=== PATIENT | female | born 1930 | race Two or more races ===

== ENCOUNTER → 2020-04-27 | Outpatient (CLI) | payer OTHER ==
[~2020-04-27] MED LIST: LISI-334 PO; METO50TA6 PO
--- NOTE | 2020-04-27 11:41 | RAD ---
3 views the cervical spine without comparison for cervicalgia. FINDINGS: There is dense atherosclerosis of the aortic arch. There is reversal of the normal cervical lordosis at C3-4. There is collapse and dense sclerosis of C5, with dense sclerosis seen at C6 as well, and there is obliteration of the C4-5 intervertebral disc space and near complete obliteration of the C5-6 intervertebral disc space, possibly with fusion of these vertebral bodies posteriorly. Bulky anterior and posterior osteophytes are seen from C3-4 through C6-7. Some degree of central canal stenosis is likely. Prevertebral soft tissues are grossly unremarkable. Atlantoaxial articulation is not well demonstrated. IMPRESSION: 1. Sclerosis and collapse of C5, with dense sclerosis of the adjacent C6 vertebral body and possible C4-5-6 degenerative fusion. Sclerosis and collapse of most likely degenerative, however a pathologic blastic metastatic process cannot be excluded and further evaluation with MRI of the cervical spine should be considered. 2. 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 Electronically signed by: Nilesh Rajput MD (04/27/2020 11:38 AM) [id number]
== END ==
LOC: DXRAD 11:05
PROVIDERS: ATTEND Specialist
DX: M48.02 Spinal stenosis, cervical region (principal); G95.89 Other specified diseases of spinal cord; I70.0 Atherosclerosis of aorta
CPT/HCPCS: 72040

== ENCOUNTER 2020-09-10 14:59 | Observation (INO) | payer OTHER ==
[~2020-09-10] VITALS: Ht 139.7 cm; Wt 35.7 kg
[~2020-09-10 14:59] MED LIST changes: -LISI-334 PO; +LISI20TA18 PO
[2020-09-10] MEDS ORDERED: IOHEXOL 300 MG/ML 75 ML VIAL. IV ONE (15:45)
--- NOTE | 2020-09-10 16:13 | RAD ---
Chest AP portable at 1540: Reason for examination: Upper abdominal pain. Comparison is made to previous study dated 09/26/2010. The heart size is upper normal. Mediastinum is unremarkable. Lung powell show some mild elevation of the right hemidiaphragm and some linear atelectasis at both lung bases. No pneumothorax is seen. No a cute bony abnormality seen. There is severe narrowing of the acromiohumeral joint space on the left c onsistent with chronic rotator cuff injury. IMPRESSION: Mild elevation of the right hemidiaphragm. Linear atelectasis at both lung bases. Electronically signed by: Caty Galo MD (09/10/2020 4:10 PM) [place]
--- NOTE | 2020-09-10 16:14 | EKG ---
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
[2020-09-10 16:40] LABS: BASO % 1 % (0-3); EOS % 0 % (0-3); HEMATOCRIT 38.4 % (36.0-47.0); HEMOGLOBIN 12.8 g/dL (12.0-15.5); LYMPH # 0.4 x10^3/uL (1.0-4.8); LYMPH % 5 % (24-48); MEAN CORPUSCULAR HEMOGLOBIN 30 pg (25-35); MEAN CORPUSCULAR HGB CONC 33 g/dL (31-37); MEAN CORPUSCULAR VOLUME 91 fL (79-100); MONO # 0.4 x10^3/uL (0.0-1.1); MONO % 4 % (0-9); NEUT # 7.8 x10^3uL (1.8-7.7); NEUT % 90 % (31-73); PLATELET COUNT 195 x10^3/uL (140-400); RED BLOOD COUNT 4.21 x10^6/uL (3.50-5.40); RED CELL DISTRIBUTION WIDTH 14.2 % (11.5-14.5); WHITE BLOOD COUNT 8.7 x10^3/uL (4.0-11.0)
--- NOTE | 2020-09-10 16:47 | PHYS DOC ---
Past History Past Medical History: Hypertension (JACKY DE LOS SANTOS DO) Past Surgical History: Other Additional Past Surgical Histo: Bladder, shoulder right (JACKY DE LOS SANTOS DO) Alcohol Use: None (JACKY DE LOS SANTOS DO) General Adult EDM: Chief Complaint: ABDOMINAL PAIN HPI: HPI: 89-year-old female past medical history of hypertension and psych (on duloxetine) presents to the ED with complaints of lower abdominal pain is now moved to the upper that started last night. Last bowel movement was yesterday. Now reports nausea. PSH-bladder surgery. Patient here in the ED with []. Patient is Turkish-speaking. (JCAKY DE LOS SANTOS DO) Review of Systems: Review of Systems: Constitutional: Denies fever or chills Eyes: Denies change in visual acuity HENT: Denies nasal congestion or sore throat Respiratory: Denies cough or shortness of breath Cardiovascular: Denies chest pain or edema GI: Denies abdominal pain, nausea, vomiting, bloody stools or diarrhea : Denies dysuria Musculoskeletal: Denies back pain or joint pain Integument: Denies rash Neurologic: Denies headache, focal weakness or sensory changes Endocrine: Denies polyuria or polydipsia Lymphatic: Denies swollen glands Psychiatric: Denies depression or anxiety (JACKY DE LOS SANTOS DO) Current Medications: Current Meds: Current Medications Medications (Trade) Dose Ordered Sig/Robyn Start Time Stop Time Status Last Admin Dose Admin Iohexol (Omnipaque 300 Mg/ml) 75 ml 1X ONCE 09/10/20 15:45 09/10/20 15:46 DC (JACKY DE LOS SANTOS DO) Allergies: Allergies: Allergies Coded Allergies Type Severity Reaction Last Updated Verified No Known Drug Allergies 05/04/14 No (JACKY DE LOS SANTOS DO) Physical Exam: PE: Constitutional: Well developed, well nourished, no acute distress, non-toxic appearance. HENT: Normocephalic, atraumatic, Eyes: EOMI, conjunctiva normal, no discharge. Neck: Normal range of motion, supple, Cardiovascular: S1/2 present, regular rhythm Lungs & Thorax: Speaking in full sentences, bilateral equal chest rise, no tachypnea or increased work of breathing Abdomen: soft, no tenderness, Skin: Warm, dry, no erythema, no rash. [] Back: No tenderness, no CVA tenderness. [] Extremities: No tenderness, no cyanosis, no lower extremity edema Neurologic: Alert and oriented X 3, normal motor function, normal sensory function, no focal deficits noted. [] Psychologic: Affect normal, judgement normal, mood normal. [] ([facility]) Current Patient Data: Labs: Laboratory Tests Test 09/10/20 16:04 White Blood Count 8.7 x10^3/uL (4.0-11.0) Red Blood Count 4.21 x10^6/uL (3.50-5.40) Hemoglobin 12.8 g/dL (12.0-15.5) Hematocrit 38.4 % (36.0-47.0) Mean Corpuscular Volume 91 fL (79-100) Mean Corpuscular Hemoglobin 30 pg (25-35) Mean Corpuscular Hemoglobin Concent 33 g/dL (31-37) Red Cell Distribution Width 14.2 % (11.5-14.5) Platelet Count 195 x10^3/uL (140-400) Neutrophils (%) (Auto) 90 % (31-73) H Lymphocytes (%) (Auto) 5 % (24-48) L Monocytes (%) (Auto) 4 % (0-9) Eosinophils (%) (Auto) 0 % (0-3) Basophils (%) (Auto) 1 % (0-3) Neutrophils # (Auto) 7.8 x10^3uL (1.8-7.7) H Lymphocytes # (Auto) 0.4 x10^3/uL (1.0-4.8) L Monocytes # (Auto) 0.4 x10^3/uL (0.0-1.1) Eosinophils # (Auto) 0.0 x10^3/uL (0.0-0.7) Basophils # (Auto) 0.0 x10^3/uL (0.0-0.2) Platelet Estimate Pending Vital Signs: Vital Signs Date Time Temp Pulse Resp B/P (MAP) Pulse Ox O2 Delivery O2 Flow Rate FiO2 09/10/20 15:14 97.8 68 16 129/53 (78) 98 Room Air ([facility]) EKG: EKG: Sinus rhythm at 66 bpm, left axis deviation, QRS 120, QTc 484, left bundle branch block present, T wave inversion 1 and aVL, no ST elevations or ST depressions consistent with modified's scarbossa criteria (JACKY DE LOS SANTOS DO) Radiology/Procedures: Radiology/Procedures: IMAGING REPORT Signed PATIENT: WILFREDO LING ACCOUNT: [id number] : 1930 LOCATION: ER AGE: 89 SEX: F EXAM STATUS: REG ER ORD. PHYSICIAN: JACKY DE LOS SANTOS DO REASON: upper abd pain PROCEDURE: PORTABLE CHEST 1V Chest AP portable at 1540: Reason for examination: Upper abdominal pain. Comparison is made to previous study dated 09/26/2010. The heart size is upper normal. Mediastinum is unremarkable. Lung powell show some mild elevation of the right hemidiaphragm and some linear atelectasis at both lung bases. No pneumothorax is seen. No acute bony abnormality seen. There is severe narrowing of the acromiohumeral joint space on the left consistent with chronic rotator cuff injury. IMPRESSION: Mild elevation of the right hemidiaphragm. Linear atelectasis at both lung bases. Electronically signed by: Derrick Quiroga MD (09/10/2020 4:10 PM) [facility] DICTATED AND SIGNED BY: DERRICK QUIROGA MD DATE: 09/10/20 1608 CC: USMAN SANTAMARIA MD; JACKY DE LOS SANTOS DO ~MTH0 0 (JACKY DE LOS SANTOS DO) Radiology/Procedures: CT abdomen pelvis without contrast dated 09/10/2020. Comparison made to 05/04/2014. CLINICAL INDICATION: Upper abdominal pain. TECHNIQUE: Contiguous axial imaging the abdomen pelvis performed the administration of oral contrast only. One or more of the following individualized dose reduction techniques were utilized for this examination: 1. Automated exposure control 2. Adjustment of the mA and/or kV according to patient size 3. Use of iterative reconstruction technique FINDINGS: Limited images of the lung bases show linear bands of increased density in the lower lobes, likely scar or atelectasis. Heart size is mildly enlarged. No pleural or pericardial effusion. Solid abdominal viscera not well evaluated in the absence of contrast material. No apparent attenuation abnormality of the liver or spleen. Pancreas is atrophic. Adrenal glands and kidneys are unremarkable. No stone or hydronephro sis. Partially opacified GI tract normal in caliber and contour. No focal bowel wall thickening. The small bowel is mildly dilated, however no transition point is identified. There is a moderate amount stool at the rectal vault with fluid- filled colon. No inflammatory changes in the mesentery. The appendix is not clearly identified. No lymphadenopathy. Images of pelvis show collapsed urinary bladder with Cloud catheter in place. There is a trace amount of free pelvic fluid. No pelvic lymphadenopathy. Bone windows show no acute findings. Multilevel spondylosis. Scoliotic curvature of the thoracolumbar spine. IMPRESSION: 1. Mildly prominent loops of small bowel with no evidence of focal transition point. This could be related to ileus or enteritis. There is a moderate amount of stool at the rectal vault. 2. Small amount of free pelvic fluid, nonspecific. 3. Patchy bibasilar opacity, likely atelectasis. (IVETTE SAUCEDO MD) Heart Score: Risk Factors: Risk Factors: DM, Current or recent (<one month) smoker, HTN, HLP, family history of CAD, obesity. Risk Scores: Score 0 - 3: 2.5% MACE over next 6 weeks - Discharge Home Score 4 - 6: 20.3% MACE over next 6 weeks - Admit for Clinical Observation Score 7 - 10: 72.7% MACE over next 6 weeks - Early Invasive Strategies (JACKY DE LOS SANTOS DO) C/O Chest Pain: N/A (IVETTE SAUCEDO MD) Course & Med Decision Making: Course & Med Decision Making Pertinent Labs and Imaging studies reviewed. (See chart for details) [] (JACKY DE LOS SANTOS DO) Course & Med Decision Making Accepted patient care at shift change. CT shows ileus with fluid-filled small bowel. No transition point. Large amount of stool in colon. Will admit for ileus and treatment of constipation. (IVETTE SAUCEDO MD) Dragon Disclaimer: Dragon Disclaimer: This electronic medical record was generated, in whole or in part, using a voice recognition dictation system. (JACKY DE LOS SANTOS DO) Departure Departure: Impression: Primary Impression: Ileus Admitting Physician: Carmenza Amanda (IVETTE SAUCEDO MD) Condition: STABLE Referrals: USMAN SANTAMARIA MD (PCP) JACKY DE LOS SANTOS DO Sep 10, 2020 16:47 IVETTE SAUCEDO MD Sep 10, 2020 21:02
[2020-09-10 16:54] LABS: CALCIUM 9.5 mg/dL (8.5-10.1); CREATININE 1.5 mg/dL (0.6-1.0); GFR 32.8; POTASSIUM 5.1 mmol/L (3.5-5.1)
[2020-09-10 17:06] LABS: ALBUMIN 3.9 g/dL (3.4-5.0); DIRECT BILIRUBIN 0.1 mg/dL (0.0-0.2); MAGNESIUM 2.3 mg/dL (1.8-2.4); TOTAL BILIRUBIN 0.5 mg/dL (0.2-1.0); TOTAL PROTEIN 7.2 g/dL (6.4-8.2)
[2020-09-10] MEDS ORDERED: IOHEXOL 240 MG/ML 50ML VIAL. ONE (17:40)
[2020-09-10 18:25] LABS: BARBITURATES NEG (NEG); BENZODIAZEPINES NEG (NEG); CANNABINOIDS NEG (NEG); CLARITY,URINE CLEAR; COCAINE NEG (NEG); COLOR,URINE YELLOW; METHADONE NEG (NEG); OPIATES NEG (NEG); PHENCYCLIDINE NEG (NEG)
[2020-09-10 18:26] LABS: BACTERIA,URINE 0 /HPF (0-FEW); BILIRUBIN,URINE NEG (NEG); GLUCOSE,URINE NEG (NEG); HYALINE CASTS, URINE MOD /HPF; NITRITE,URINE NEG (NEG); SQUAMOUS EPITHELIAL CELL,UR FEW /LPF; UROBILINOGEN,URINE 0.2 mg/dL (0.2 mg/dL)
[2020-09-10 18:27] LABS: AMPHETAMINE/METHAMPHETAMINE NEG (NEG)
[2020-09-10] MEDS ORDERED: IV NORMAL SALINE 500ML 500 ML IV ONE (19:00)
[2020-09-10] MEDS ORDERED: LIDO:MAALOX 1:1 20 ML SINGLE DOSE. PO ONE (19:15)
[2020-09-10 19:27] LABS: % LYMPHS 7 % (24-48); % MONOS 4 % (0-10); % SEGS 89 % (35-66); PLT ESTIMATE ADEQUATE (ADEQUATE)
--- NOTE | 2020-09-10 20:48 | RAD ---
CT abdomen pelvis without contrast dated 09/10/2020. Comparison made to 05/04/2014. CLINICAL INDICATION: Upper abdominal pain. TECHNIQUE: Contiguous axial imaging the abdomen pelvis performed the administration of oral contrast only. One or more of the following individualized dose reduction techniques were utilized for this examinat ion: 1. Automated exposure control 2. Adjustment of the mA and/or kV according to patient size 3. Use of iterative reconstruction technique FINDINGS: Limited images of the lung bases show linear bands of increased density in the lower lobes, likely sc ar or atelectasis. Heart size is mildly enlarged. No pleural or pericardial effusion. Solid abdominal viscera not well evaluated in the absence of contrast material. No apparent attenuati on abnormality of the liver or spleen. Pancreas is atrophic. Adrenal glands and kidneys are unremarka ble. No stone or hydronephrosis. Partially opacified GI tract normal in caliber and contour. No focal bowel wall thickening. The small bowel is mildly dilated, however no transition point is identified. There is a moderate amount stool at the rectal vault with fluid-filled colon. No inflammatory changes in the mesentery. The appendix is not clearly identified. No lymphadenopathy. Images of pelvis show collapsed urinary bladder with Cloud catheter in place. There is a trace amount of free pelvic fluid. No pelvic lymphadenopathy. Bone windows show no acute findings. Multilevel spondylosis. Scoliotic curvature of the thoracolumbar spine. IMPRESSION: 1. Mildly prominent loops of small bowel with no evidence of focal transition point. This could be re lated to ileus or enteritis. There is a moderate amount of stool at the rectal vault. 2. Small amount of free pelvic fluid, nonspecific. 3. Patchy bibasilar opacity, likely atelectasis. Electronically signed by: Abhijit Nobles MD (09/10/2020 8:46 PM) [facility]
[2020-09-10] MEDS ORDERED: MORPHINE SULFATE 2 MG/ML DISP.SYRIN. IVP PRN (21:15)
[2020-09-10] MEDS ORDERED: METOCLOPRAMIDE HCL 10 MG/2 ML VIAL. IVP ONE (21:15)
[2020-09-10] MEDS ORDERED: GLYCERIN ADULT 1 SUPP.RECT. PR ONE (21:30)
[2020-09-10 22:29] VITALS: BP 159/69
[2020-09-10] MEDS ORDERED: DULO20CA18 PO (23:05)
[2020-09-10] MEDS ORDERED: METO50TA6 PO (23:05)
[2020-09-10] MEDS ORDERED: LISI20TA18 PO (23:06)
[2020-09-10] MEDS: POLYETHYLENE GLYCOL 3350 17 GM PACKET. PO SCH (23:49)
[2020-09-10] MEDS: DOCUSATE SODIUM 100 MG CAPSULE PO SCH (23:49)
[2020-09-10] MEDS: DULoxetine HCL 20 MG CAPSULE.DR PO SCH (23:49)
[2020-09-10] MEDS: LISINOPRIL 20 MG TABLET PO SCH (23:49)
[2020-09-10] MEDS: ACETAMINOPHEN 325 MG TABLET PO PRN (23:49)
[2020-09-11 05:03] VITALS: BP 141/64
[2020-09-11] MEDS: METOPROLOL TART IMMED RELEASE 50 MG TABLET PO SCH (08:30)
[2020-09-11] MEDS: POLYETHYLENE GLYCOL 3350 17 GM PACKET. PO SCH (08:30)
[2020-09-11] MEDS: DULoxetine HCL 20 MG CAPSULE.DR PO SCH ×2 (08:30→20:18)
[2020-09-11] MEDS: DOCUSATE SODIUM 100 MG CAPSULE PO SCH ×2 (08:30→20:18)
[2020-09-11] MEDS: LISINOPRIL 20 MG TABLET PO SCH ×2 (08:30→20:18)
[2020-09-11 10:50] VITALS: BP 137/64
[2020-09-11 14:24] LABS: HEMATOCRIT 33.2 % (36.0-47.0); HEMOGLOBIN 11.1 g/dL (12.0-15.5); RED BLOOD COUNT 3.66 x10^6/uL (3.50-5.40); RED CELL DISTRIBUTION WIDTH 13.9 % (11.5-14.5); WHITE BLOOD COUNT 4.7 x10^3/uL (4.0-11.0)
--- NOTE | 2020-09-11 14:32 | HP ---
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 She does have bowel movement on the day before admission and she also stated that she had some fever and chills, but that has subsided. She was extensively investigated in the Emergency Room and has had lab work and imaging studies. Her lab work was mostly unremarkable and her chemistry showed that she is dehydrated, probably has either acute or chronic kidney disease. Urinalysis was essentially unremarkable and toxic screen was essentially negative. Her chest x-ray showed mild elevation of the right hemidiaphragm, linear atelectasis in both lung bases. She did have a CT scan of the abdomen and pelvis, which basically showed mildly prominent loops of small bowel with no evidence of focal transition point. This could be related to ileus or enteritis. There is a moderate amount of stool in the rectal vault, small amount of free pelvic fluid, nonspecific and patchy bibasilar opacities, likely atelectasis. The patient was started on IV fluid, has an indwelling Cloud catheter, and was treated with continued home medication. We added Colace and MiraLax and apparently she has had 2 bowel movements. PAST MEDICAL HISTORY: Significant for hypertension. PAST SURGICAL HISTORY: Significant for bladder surgery and surgery on her left shoulder. ALLERGIES: She has no known drug allergies. MEDICATIONS: She is currently on following medications: She is on metoprolol tartrate 50 mg daily, lisinopril 20 mg b.i.d., duloxetine 20 mg p.o. b.i.d. FAMILY HISTORY: Noncontributory. 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 She has never smoked, does not drink alcohol or use any recreational drugs. She worked in [place], but has been living here for a while. PHYSICAL EXAMINATION: GENERAL: On arrival to the Emergency Room, she looked well and was clearly in no apparent respiratory distress. No pallor. Pale, but no jaundice or cyanosis. No lymphadenopathy, no thyromegaly. No jugular venous distention. No lower limb edema. VITAL SIGNS: Her heart rate was 68, blood pressure was 129/53, temperature 97.8, respiratory rate was 16, and oxygen saturation was 98%. HEAD, EYES, EARS, NOSE AND THROAT: Normocephalic, atraumatic. NECK: Supple. HEART: Showed normal first and second heart sounds. No gallop, rub, or murmur. CHEST: Clear to auscultation. No crepitation or rhonchi. ABDOMEN: Distended, soft with mostly mild tenderness in the left lower quadrant. There is no guarding or rigidity. No organomegaly. All hernial orifices intact. Bowel sounds normal. NEUROLOGIC: All her cranial nerves are intact. EXTREMITIES: She moves extremities without difficulty. She has marked muscle wasting and weakness. She is cachectic with a body mass index only 18.3 kilograms square meter. LABORATORY DATA: Her lab work on admission showed a white cell count of 8700, hemoglobin 12.8, hematocrit 38, MCV 91, and platelet count of 195,000 with normal manual differential. Her chemistry showed a serum sodium 138, potassium 5.1, chloride 101, bicarbonate 28, anion gap of 9, BUN 33, creatinine 1.5, estimated GFR was 33 mL per minute. Her glucose 115, calcium was 9.5. Calcium was 9.5, magnesium 2.3. Total bilirubin, AST, ALT, and alkaline phosphatase were all normal. Her beta natriuretic peptide was 4192. Total protein 7.2, albumin 3.9. Prothrombin time, INR and aPTT are all normal. Urinalysis is essentially unremarkable. Toxic screen was negative. ASSESSMENT AND PLAN: In summary, this is an 89-year-old female patient who was admitted with abdominal pain, was found also to have constipation, questionable ileus with fluid-filled small bowel with no transition point, and large amount of stool in the colon. I will arrange for her to have a repeat CT scan of the abdomen and pelvis. I reviewed all her labs again; and if there is improvement and she is tolerating her diet, she can be discharged back. YAMILETH BAUER MD DR: MENDEZ/jessica JOB#: [id number] / [id number]
[2020-09-11 14:38] LABS: CALCIUM 8.2 mg/dL (8.5-10.1); CREATININE 1.2 mg/dL (0.6-1.0); GFR 42.5; POTASSIUM 4.3 mmol/L (3.5-5.1)
[2020-09-11 14:43] LABS: ALBUMIN 3.1 g/dL (3.4-5.0); ALBUMIN/GLOBULIN RATIO 1.1 (1.0-1.7); TOTAL BILIRUBIN 0.5 mg/dL (0.2-1.0)
[2020-09-11 14:57] VITALS: BP 136/52
--- NOTE | 2020-09-11 19:24 | RAD ---
CT abdomen is without contrast dated 09/11/2020. Comparison made to 09/10/2020. Clinical data indication: Follow-up dilated bowel. Abdominal pain. TECHNIQUE: Contiguous axial imaging the abdomen pelvis performed after the administration of oral contrast only. One or more of the following individualized dose reduction techniques were utilized for this examinat ion: 1. Automated exposure control 2. Adjustment of the mA and/or kV according to patient size 3. Use of iterative reconstruction technique. FINDINGS: Limited images of the lung bases show linear bands of increased density at the lower lobes, likely sc ar or atelectasis. Heart size is mildly enlarged. No pleural or pericardial effusion. Elevation of ri ght hemidiaphragm. Contrast material now extends throughout the colon to the rectal vault. There has been some improveme nt in stool burden at the distal rectum. There are a few scattered diverticula throughout the colon. No free air or significant free fluid. No apparent focal bowel wall thickening. The appendix is not c learly visualized. No inflammatory changes in the right lower quadrant. Solid abdominal viscera not well evaluated in the absence of contrast material. No apparent attenuati on abnormality of the liver or spleen. Pancreas, adrenal glands and kidneys are unremarkable. No hydr onephrosis. Trace amount of free fluid along the liver edge, unchanged. Images the pelvis show collapsed urinary bladder with Cloud catheter in place. Trace amount of free f luid. No pelvic adenopathy. Bone windows show no acute findings. Multilevel spondylosis. Wedge compression deformity of L2, uncha nged. IMPRESSION: 1. No evidence of bowel obstruction. Contrast material reaches the rectum. There has been some reduct ion in stool burden at the rectal vault. 2. Small amount of free fluid along the liver edge and pelvis, nonspecific but unchanged. 3. No new abnormality. Electronically signed by: Abhijit Nobles MD (09/11/2020 7:21 PM) [facility]
[2020-09-11 19:33] VITALS: BP 125/55
[2020-09-11] MEDS: ACETAMINOPHEN 325 MG TABLET PO PRN (20:18)
[2020-09-11 22:44] VITALS: BP 130/55
[2020-09-12 05:28] VITALS: BP 166/57
[2020-09-12 08:33] VITALS: BP 166/57
[2020-09-12] MEDS: DOCUSATE SODIUM 100 MG CAPSULE PO SCH (08:33)
[2020-09-12] MEDS: LISINOPRIL 20 MG TABLET PO SCH (08:33)
[2020-09-12] MEDS: METOPROLOL TART IMMED RELEASE 50 MG TABLET PO SCH (08:33)
[2020-09-12] MEDS: DULoxetine HCL 20 MG CAPSULE.DR PO SCH (08:33)
[2020-09-12] MEDS: POLYETHYLENE GLYCOL 3350 17 GM PACKET. PO SCH (08:33)
[2020-09-12] MEDS ORDERED: POLY17PO5 PO ×2 (08:53→08:54)
--- NOTE | 2020-09-12 09:20 | PN ---
DATE: 09/11/2020 SUBJECTIVE: The patient is resting, slightly propped up in bed, in no apparent distress. She is awake, alert, denied any further episodes of nausea and vomiting. She has had 2 bowel movements last night and this morning, continued to have mild tenderness mostly in the left lower quadrant. She was started on a clear liquid diet and apparently has tolerated that. PHYSICAL EXAMINATION: GENERAL: When I examined her this afternoon, she looked somewhat pale, cachectic, but no jaundice, cyanosis or thyromegaly. No jugular venous distension. No lower limb edema. VITAL SIGNS: Her heart rate was 70, blood pressure was 164/57, temperature 97.8, respiratory rate was 16, and oxygen saturation was 96% on room air. HEAD, EYES, EARS, NOSE AND THROAT: Showed normocephalic, atraumatic. NECK: Supple. HEART: Showed normal first and second heart sounds. No gallop or murmur. CHEST: Clear to auscultation. No crepitation or rhonchi. ABDOMEN: Distended, soft, nontender except in the left lower quadrant. There is no guarding or rigidity. No organomegaly. All hernial orifice intact. Bowel sounds normal. NEUROLOGIC: She was awake, alert, responding appropriately. All cranial nerves intact. She moves extremities without difficulty. ASSESSMENT: Abdominal pain with mild ileus. No transition point. The patient has 2 bowel movements. I did a rectal exam showed the rectal vault is empty. PLAN: My plan is to repeat all her lab work and also CT scan of the abdomen and pelvis without contrast and if the constipation and ileus, resolved, we can advance her diet and she can be discharged back to [facility]. YAMILETH BAUER MD DR: MENDEZ/jessica JOB#: [id number] / [id number]
--- NOTE | 2020-09-12 17:23 | DS ---
DATE OF DISCHARGE: 09/12/2020 ATTENDING PHYSICIAN: Dr. Amanda. FINAL DISCHARGE DIAGNOSES: 1. Constipation, resolved. 2. Abdominal pain due to constipation, resolved. 3. Essential hypertension. 4. History of bladder surgery. 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 She was admitted with abdominal pain and constipation. PHYSICAL EXAMINATION: Please see the dictated note. PERTINENT LABORATORY AND X-RAY STUDIES: Her initial hemoglobin was 12.8 g/dL with a white count of 8700. Electrolytes within normal range. Creatinine 1.5, repeated with hydration, down to 1.2 mg/dL. Cardiac enzymes 3 sets were negative for coronary ischemia. BNP 4100. Nonfasting blood sugar 115. IMAGING STUDIES: On admission, her abdominal and pelvic CT showed a large amount of stool in the rectal vault, some atelectasis in the lungs and constipation without any focal or mechanical obstruction. COURSE IN THE HOSPITAL: The patient was admitted. She responded well to the laxatives with several bowel movements and improvement. By the time I saw her on the morning of the , her abdomen was soft. Abdominal pain has resolved. She was eating and she was back to her baseline. At this time, she was ready for discharge back to the [facility]. I recommended initiation of a stool softener in the form of MiraLax 17 g daily. Her other home meds are unchanged. She will continue her scheduled Cymbalta, lisinopril and metoprolol doses unchanged. She was discharged then from our hospital in stable condition with explicit instructions and followup care. RICARDO CHAVIRA MD DR: YUNIEL/jessica JOB#: [id number] / [id number] YAMILETH Schneider MD
== END 2020-09-12 09:48 | disposition home or self-care (01) ==
LOC: ER 14:59 → INTOOBSV 22:16 → 1 SOUTH 22:16
PROVIDERS: ADMIT Internal Medicine; ATTEND Internal Medicine
DX: R10.32 Left lower quadrant pain (principal); K59.00 Constipation, unspecified; I10 Essential (primary) hypertension; E11.9 Type 2 diabetes mellitus without complications; E78.5 Hyperlipidemia, unspecified; E86.0 Dehydration; J98.11 Atelectasis; Z98.890 Other specified postprocedural states; Z87.891 Personal history of nicotine dependence; Z79.899 Other long term (current) drug therapy
CPT/HCPCS: 36415; 51702; 71045; 74176; 80048; 80053; 80076; 80307; 81001; 82550; 83615; 83690; 83735; 83880; 84484; 85007; 85025; 85027; 85610; 85730; 93005; 99285; G0378; J7040; G0379

== ENCOUNTER → 2020-12-05 | Outpatient (CLI) | payer OTHER ==
[~2020-12-05] MED LIST changes: +DULO20CA18 PO; +POLY17PO5 PO
--- NOTE | 2020-12-05 16:11 | RAD ---
XR ABDOMEN 1V History: Reason: ABD PAIN / Spl. Instructions: / History: Technique: Supine view the abdomen. Comparison: CT September 11, 2020 Findings: Mild small bowel gas. Air and stool throughout the colon. Moderate to large colonic stool burden. Lef tward curvature of the lumbar spine with advanced degenerative changes. Elevation of the right hemidi aphragm. Impression: 1. Nonobstructed bowel gas pattern. 2. Moderate to large colonic stool burden. Electronically signed by: Slava Goldberg DO (12/05/2020 4:09 PM) [facility]
== END ==
LOC: RAD 15:48
PROVIDERS: ATTEND Specialist
DX: R10.84 Generalized abdominal pain (principal)
CPT/HCPCS: 74018

== ENCOUNTER → 2021-04-16 | Outpatient (CLI) | payer OTHER ==
--- NOTE | 2021-04-16 15:10 | RAD ---
Upright and supine views of the abdomen compared to KUB dated December 05, 2020 for abdominal pain. FINDINGS: There is scattered abdominal bowel gas with a moderate amount of stool. No evidence of nasim l obstruction. No pathologic soft tissue calcifications. Severe degenerative scoliosis of lumbar spin e, grossly stable. Extensive aortic vasculopathy. IMPRESSION: 1. Nonobstructive nonspecific bowel gas pattern. 2. Severe degenerative scoliosis of the lumbar spine. Electronically signed by: Nilesh Rajput MD (04/16/2021 3:08 PM) [id number]
== END ==
LOC: RAD 11:01 → EDBD 11:01
PROVIDERS: ATTEND Family Medicine
DX: M41.86 Other forms of scoliosis, lumbar region (principal); R10.84 Generalized abdominal pain
CPT/HCPCS: 74019

== ENCOUNTER 2021-05-16 10:55 | Inpatient (IN) | payer OTHER ==
[~2021-05-16] VITALS: Ht 152.4 cm; Wt 34.1 kg
[2021-05-16 11:55] LABS: BASO # 0.1 x10^3/uL (0.0-0.2); BASO % 1 % (0-3); EOS % 1 % (0-3); HEMATOCRIT 33.1 % (36.0-47.0); HEMOGLOBIN 11.1 g/dL (12.0-15.5); LYMPH # 0.6 x10^3/uL (1.0-4.8); LYMPH % 13 % (24-48); MEAN CORPUSCULAR HEMOGLOBIN 30 pg (25-35); MEAN CORPUSCULAR HGB CONC 33 g/dL (31-37); MEAN CORPUSCULAR VOLUME 89 fL (79-100); MONO # 0.4 x10^3/uL (0.0-1.1); MONO % 10 % (0-9); NEUT # 3.2 x10^3uL (1.8-7.7); NEUT % 75 % (31-73); PLATELET COUNT 179 x10^3/uL (140-400); RED BLOOD COUNT 3.72 x10^6/uL (3.50-5.40); RED CELL DISTRIBUTION WIDTH 14.8 % (11.5-14.5); WHITE BLOOD COUNT 4.3 x10^3/uL (4.0-11.0)
--- NOTE | 2021-05-16 12:47 | RAD ---
EXAM: CT Head without IV contrast CLINICAL HISTORY: Reason: Confusion, altered mental status / Spl. Instructions: / History: COMPARISON: None. TECHNIQUE: Routine CT of the head without contrast. PQRS compliance statement - One or more of the following individualized dose reduction techniques wer e utilized for this study: 1. Automated exposure control 2. Adjustment of the mA and/or kV according to patient size 3. Use of iterative reconstruction technique FINDINGS: There is no evidence of hemorrhage, mass or extra-axial fluid collection. Cortical based calcificatio n right parietal occipital region possibly from prior trauma, infectious or inflammatory process. Avalos-white differentiation is maintained with no evidence of edema. Subcortical, periventricular as w ell as deep white matter hypoattenuation likely changes of chronic small vessel disease. There is no mass effect or shift of the intracranial structures. The ventricles, basilar cisterns and cortical sulci are normal in size and configuration for the rosio ents stated age. The cerebellum and brainstem are unremarkable. The calvarium demonstrates no evidence of fracture or focal lesion. There is normal aeration of the visualized paranasal sinuses and mastoid air cells. The visualized portions of the orbits are normal. IMPRESSION: 1. No evidence for acute intracranial process. 2. White matter changes, likely chronic small vessel disease. Electronically signed by: Chris Villavicencio MD (05/16/2021 12:45 PM) UIAD2
[2021-05-16 12:49] LABS: CALCIUM 8.7 mg/dL (8.5-10.1); CREATININE 1.3 mg/dL (0.6-1.0); GFR 38.7; POTASSIUM 4.7 mmol/L (3.5-5.1)
--- NOTE | 2021-05-16 12:49 | RAD ---
EXAM: AP View of the chest DATE: 05/16/2021 12:16 PM INDICATION: Reason: Confusion, altered mental status / Spl. Instructions: / History: COMPARISON: No Prior FINDINGS: The heart is not enlarged. Aortic calcifications are seen. No focal parenchymal airspace opacity. No pleural effusion or pneumothorax. Mild elevation right hemidiaphragm. Severe left shoulder joint osteoarthritis. IMPRESSION: No radiographic evidence for acute cardiopulmonary process. Electronically signed by: Chris Villavicencio MD (05/16/2021 12:47 PM) [id number]
[2021-05-16 12:54] LABS: ALBUMIN 3.6 g/dL (3.4-5.0); ALBUMIN/GLOBULIN RATIO 1.1 (1.0-1.7); TOTAL BILIRUBIN 0.5 mg/dL (0.2-1.0); TOTAL PROTEIN 6.9 g/dL (6.4-8.2)
[2021-05-16 13:00] LABS: BILIRUBIN,URINE NEG (NEG); CLARITY,URINE CLEAR; COLOR,URINE STRAW; GLUCOSE,URINE NEG (NEG)
[2021-05-16 13:01] LABS: BACTERIA,URINE 0 /HPF (0-FEW); NITRITE,URINE NEG (NEG); RBC,URINE 0 /HPF (0-2); SQUAMOUS EPITHELIAL CELL,UR OCC /LPF; UROBILINOGEN,URINE 0.2 mg/dL (0.2 mg/dL); WBC,URINE 0 /HPF (0-4)
--- NOTE | 2021-05-16 15:20 | PHYS DOC ---
Past History Past Medical History: Hypertension (CESAR RÍOS APRN) Past Surgical History: Other Additional Past Surgical Histo: Bladder, shoulder right (CESAR RÍOS APRN) Alcohol Use: None (CESAR RÍOS APRN) Adult General Chief Complaint Chief Complaint: ALTERED MENTAL STATUS HPI HPI Patient is a 89-year-old female who presents to the emergency department via EMS for reports of altered mental status with increased confusion over the past week. Transport patient financial specialist reports he was told by [facility] staff patient has been talking to people who were not there, also reports patient has been eloping from her facility and wandering. Patient has had similar episodes in the past with urinary tract infections, patient denies complaints of headaches, dizziness, chest pains, urinary burning, urinary pressure, increased urinary frequency. Patient denies physical complaints or physical concerns. Patient does live at local [facility]. Transport patient financial specialist indicated penitentiary staff no longer able to care for patient at their facility. (CESAR RÍOS APRN) Review of Systems Review of Systems Limited ROS related to patient's history of Alzheimer's dementia. Patient has no complaints. (CESAR RÍOS APRN) Allergies Allergies Allergies Coded Allergies Type Severity Reaction Last Updated Verified No Known Drug Allergies 05/04/14 No (CESAR RÍOS APRN) Physical Exam Physical Exam Constitutional: Well developed, well nourished, no acute distress, non-toxic appearance. 89-year-old Canadian-speaking female in no apparent distress. HENT: Normocephalic, atraumatic. No villagomez sign, no raccoon eyes, bilateral TMs intact within normal limits, no drainage from external auditory canals, no lymph adenopathy of the head or neck appreciated, no malocclusion, oropharynx moist, pink, no deep tissue infectious process appreciated, no laryngeal edema, no uvular edema or deviation. Eyes: Conjunctiva normal, no discharge. Neck: Normal range of motion, no stridor. No tenderness of C-spine, no nuchal rigidity, no meningismus signs. Cardiovascular: No cyanosis appreciated, distal cap refill less than 2 seconds. Lungs & Thorax: Patient is in no respiratory distress, no audible adventitious lung sounds appreciated. Abdomen: Nontender, no abnormalities noted. Skin: Warm, dry, no erythema, no rash. Back: No tenderness, no deformities. Extremities: No tenderness, no cyanosis, no clubbing, ROM intact, no edema. Neurologic: Alert and oriented to self only, normal motor function, normal sensory function, no focal deficits noted. Psychologic: Affect normal, judgement normal, mood normal. Patient is speaking to people in room who were not there during physical examination. (CESAR RÍOS APRN) Current Patient Data Vital Signs Vital Signs Date Time Temp Pulse Resp B/P (MAP) Pulse Ox O2 Delivery O2 Flow Rate FiO2 05/16/21 11:15 97.8 174/68 (103) 96 Lab Results Laboratory Tests Test 05/16/21 11:30 05/16/21 11:55 White Blood Count 4.3 x10^3/uL (4.0-11.0) Red Blood Count 3.72 x10^6/uL (3.50-5.40) Hemoglobin 11.1 g/dL (12.0-15.5) L Hematocrit 33.1 % (36.0-47.0) L Mean Corpuscular Volume 89 fL (79-100) Mean Corpuscular Hemoglobin 30 pg (25-35) Mean Corpuscular Hemoglobin Concent 33 g/dL (31-37) Red Cell Distribution Width 14.8 % (11.5-14.5) H Platelet Count 179 x10^3/uL (140-400) Neutrophils (%) (Auto) 75 % (31-73) H Lymphocytes (%) (Auto) 13 % (24-48) L Monocytes (%) (Auto) 10 % (0-9) H Eosinophils (%) (Auto) 1 % (0-3) Basophils (%) (Auto) 1 % (0-3) Neutrophils # (Auto) 3.2 x10^3uL (1.8-7.7) Lymphocytes # (Auto) 0.6 x10^3/uL (1.0-4.8) L Monocytes # (Auto) 0.4 x10^3/uL (0.0-1.1) Eosinophils # (Auto) 0.0 x10^3/uL (0.0-0.7) Basophils # (Auto) 0.1 x10^3/uL (0.0-0.2) Sodium Level 136 mmol/L (136-145) Potassium Level 4.7 mmol/L (3.5-5.1) Chloride Level 102 mmol/L (98-107) Carbon Dioxide Level 28 mmol/L (21-32) Anion Gap 6 (6-14) Blood Urea Nitrogen 25 mg/dL (7-20) H Creatinine 1.3 mg/dL (0.6-1.0) H Estimated GFR (Cockcroft-Gault) 38.7 BUN/Creatinine Ratio 19 (6-20) Glucose Level 86 mg/dL (70-99) Calcium Level 8.7 mg/dL (8.5-10.1) Total Bilirubin 0.5 mg/dL (0.2-1.0) Aspartate Amino Transferase (AST) 23 U/L (15-37) Alanine Aminotransferase (ALT) 16 U/L (14-59) Alkaline Phosphatase 66 U/L (46-116) Total Protein 6.9 g/dL (6.4-8.2) Albumin 3.6 g/dL (3.4-5.0) Albumin/Globulin Ratio 1.1 (1.0-1.7) Lipase 63 U/L (73-393) L Urine Collection Type U cath Urine Color Straw Urine Clarity Clear Urine pH 8.0 Urine Specific [place] 1.020 Urine Protein Neg (NEG-TRACE) Urine Glucose (UA) Neg mg/dL (NEG) Urine Ketones (Stick) Neg mg/dL (NEG) Urine Blood Neg (NEG) Urine Nitrite Neg (NEG) Urine Bilirubin Neg (NEG) Urine Urobilinogen Dipstick 0.2 mg/dL (0.2 mg/dL) Urine Leukocyte Esterase Neg (NEG) Urine RBC 0 /HPF (0-2) Urine WBC 0 /HPF (0-4) Urine Squamous Epithelial Cells Occ /LPF Urine Bacteria 0 /HPF (0-FEW) Urine Mucus Slight /LPF (CESAR RÍOS APRN) EKG EKG EKG performed at 1151 by ED nursing staff shows a normal sinus rhythm with abnormal left axis deviation, left bundle branch block without ST elevation or depression consistent with sclerosis criteria, VT interval 0.162, QTc interval 0.454, heart rate is 64 bpm, no other ectopy appreciated, no acute STEMI, no acute ACS, no acute ischemia appreciated, EKG interpreted by ED attending physician Dr. Peacock. (CESAR RÍOS APRN) Radiology/Procedures Radiology/Procedures REASON: Confusion, altered mental status PROCEDURE: CT HEAD WO CONTRAST EXAM: CT Head without IV contrast CLINICAL HISTORY: Reason: Confusion, altered mental status / Spl. Instructions: / History: COMPARISON: None. TECHNIQUE: Routine CT of the head without contrast. PQRS compliance statement - One or more of the following individualized dose reduction techniques were utilized for this study: 1. Automated exposure control 2. Adjustment of the mA and/or kV according to patient size 3. Use of iterative reconstruction technique FINDINGS: There is no evidence of hemorrhage, mass or extra-axial fluid collection. Cortical based calcification right parietal occipital region possibly from prior trauma, infectious or inflammatory process. Avalos-white differentiation is maintained with no evidence of edema. Subcortical, periventricular as well as deep white matter hypoattenuation likely changes of chronic small vessel disease. There is no mass effect or shift of the intracranial structures. The ventricles, basilar cisterns and cortical sulci are normal in size and configuration for the patients stated age. The cerebellum and brainstem are unremarkable. The calvarium demonstrates no evidence of fracture or focal lesion. There is normal aeration of the visualized paranasal sinuses and mastoid air cells. The visualized portions of the orbits are normal. IMPRESSION: 1. No evidence for acute intracranial process. 2. White matter changes, likely chronic small vessel disease. Electronically signed by: Chris Villavicencio MD (05/16/2021 12:45 PM) UICRAD2 (CESAR RÍOS APRN) Heart Score C/O Chest Pain: No Risk Factors: Risk Factors: DM, Current or recent (<one month) smoker, HTN, HLP, family history of CAD, obesity. Risk Scores: Risk Factors: DM, Current or recent (<one month) smoker, HTN, HLP, family history of CAD, obesity. (CESAR RÍOS APRN) Course & Med Decision Making Course & Med Decision Making Pertinent Labs and Imaging studies reviewed. (See chart for details) 89-year-old female, vital signs reviewed, resents respiratory concerning altered mental status increasing over the past week. Physical examination nonconcerning for acute injury, will order CT head without contrast, CBC, CMP, lipase, urinalysis assay. EKG. Chest x-ray. Labs unremarkable, her urine is not infected, chest x-ray unremarkable, CT head unremarkable for acute process. Discussed with banner/penitentiary staff at bedside, discussed admission to the hospital for increased confusion and altered mental status, discussed with patient admission to the hospital, patient is amenable to admission. Called and discussed patient case and ED work-up with inpatient management physician Dr. Amanda who agrees patient's case warrants admission to the hospital. Patient will be admitted to the medical surgical unit for altered mental status. Patient awaiting bed assignment at this time. (CESAR RÍOS APRN) Dragon Disclaimer Dragon Disclaimer This electronic medical record was generated, in whole or in part, using a voice recognition dictation system. (CESAR RÍOS APRN) Departure Departure: Impression: Primary Impression: Altered mental status Disposition: ADMITTED INPATIENT Admitting Physician: Carmenza Amanda (Admit to [facility] to medical surgical unit.) (CESAR RÍOS APRN) Condition: STABLE Referrals: USMAN SANTAMARIA MD (PCP) Attending Signature Attending Signature I have reviewed the PA/MINISTER's note and plan of care. I was available for consultat ion as needed during the patient's visit in the emergency department. I agree with the clinical impression, plan, and disposition. (CESAR PEACOCK DO) Problem Qualifiers Primary Impression: Altered mental status Altered mental status type: unspecified Qualified Codes: R41.82 - Altered mental status, unspecified CESAR RÍOS APRN May 16, 2021 15:20 CESAR PEACOCK DO May 17, 2021 15:27
--- NOTE | 2021-05-16 18:12 | NUR ---
Pt arrived via [facility]. Pt primarily syrian speaking, has difficultly staying awake.
[2021-05-16 18:19] VITALS: BP 175/68
[2021-05-16] MEDS ORDERED: OLANZapine IM 10 MG VIAL. IM ONE (20:00)
[2021-05-16] MEDS ORDERED: OLANZapine IM 10 MG VIAL. IM PRN (20:15)
[2021-05-16] MEDS: DULoxetine HCL 20 MG CAPSULE.DR PO SCH (21:14)
[2021-05-16] MEDS: LISINOPRIL 20 MG TABLET PO SCH (21:14)
[2021-05-17] VITALS (7 sets, daily range): BP systolic 90–106; BP diastolic 44–58
[2021-05-17] MEDS ORDERED: IV NORMAL SALINE 1,000ML 1,000 ML IV ONE (06:30)
--- NOTE | 2021-05-17 07:01 | EKG ---
[address] [address] Test Date: 2021-05-16 Test Time: 11:51:33 Pat Name: WILFREDO LING Department: Room: 124 A Gender: F Bindery Helper: : [id number] Requested By: CESAR RÍOS Order Number: [id number] Reading MD: Maldonado Arnett MD Measurements Intervals [place] Rate: 64 P: 25 ID: [id number] QRS: -42 QRSD: 118 T: 88 QT: 440 QTc: 454 Interpretive Statements SINUS RHYTHM lbbb Electronically Signed On 05-19-2021 20:59:49 WOOL MERCHANT by Maldonado Arnett MD
[2021-05-17] MEDS: DULoxetine HCL 20 MG CAPSULE.DR PO SCH ×2 (08:28→19:52)
[2021-05-17] MEDS: LISINOPRIL 20 MG TABLET PO SCH (08:30)
[2021-05-17] MEDS: POLYETHYLENE GLYCOL 3350 17 GM PACKET. PO SCH (08:31)
[2021-05-17] MEDS ORDERED: METOPROLOL SUCC 24HR ER 50 MG TAB.ER.24H. PO SCH (09:00)
[2021-05-17] MEDS ORDERED: IV NORMAL SALINE 500ML 500 ML IV ONE (14:30)
--- NOTE | 2021-05-17 14:41 | SSS ---
DATE OF SERVICE: 05/17/2021 ADMIT DATE: 05/16/2021 HISTORY OF PRESENT ILLNESS: The patient is an 89-year-old female patient who was a resident at a jail and who was brought to the Emergency Room Department via EMS for reports of altered mental status with increased confusion over the past week. The transport extras casting director reports he was told by the jail staff the patient has been talking to people who were not there. Also reports the patient has been eloping from her facility and wandering, and the patient has had similar episodes in the past with urinary tract infection. The patient denied any complaints of headache, dizziness, chest pain, urinary burning, urinary pressure, increased urinary frequency. The patient denied physical complaints or physical concern. The patient does live at a local [facility]. The transport extras casting director indicated jail staff is no longer able to care for the patient at their facility. She was extensively investigated in the Emergency Room and has had lab work and imaging studies. Her lab works are all unremarkable. Her urinalysis essentially unremarkable. Her coronavirus by PCR and rapid testing was negative. Her chest x-ray was unremarkable as well as CT scan of the head. She was evaluated by physical and occupational therapist and stated that she does not need any physical or occupational therapy. I attempted to admit her to our [facility]; however, they are full capacity and cannot be admitted there. In consulting with our social research assistant, she stated that admitting her to a different facility is the responsibility of whoever takes care of that facility. PHYSICAL EXAMINATION: GENERAL: When I saw her, she looked well and was clearly in no apparent respiratory distress. No pallor, jaundice, cyanosis or thyromegaly. No jugular venous distention. No lower limb edema. VITAL SIGNS: Her heart rate was 66, blood pressure was 93/48, temperature was 97, respiratory rate 20, and oxygen saturation was 92%. HEAD, EYES, EARS, NOSE, AND THROAT: Normocephalic, atraumatic. NECK: Supple. HEART: Showed normal first and second heart sounds. No gallop, rub or murmur. CHEST: Clear to auscultation. No crepitation or rhonchi. ABDOMEN: Distended, soft, nontender. NEUROLOGIC: She was demented, but without any obvious lateralizing sign. She ambulates without assistance or assistive devices. LABORATORY DATA: Her lab work showed a white cell count of 4300, hemoglobin 11, hematocrit 33, MCV 89 and platelet count of 179,000. Her chemistry showed a serum sodium 136, potassium 4.7, chloride 102, bicarbonate 28, anion gap of 6, BUN 25, creatinine was 1.3. Estimated GFR was 38 mL per minute. Her glucose was 86. Calcium was 8.7. Total bilirubin, AST, ALT, alkaline phosphatase were normal. Her total protein was 6.9, albumin 3.6, lipase was 63. Urinalysis essentially unremarkable, and her coronavirus by PCR and rapid testing were negative. ASSESSMENT AND PLAN: Apparently when I questioned the nursing staff, they stated that she is very weak and she has to have 2-person assist to get to the bathroom and therefore, we will probably cancel the discharge and start her on IV fluids, repeat her lab work again this evening and hopefully if she is stable, she can be discharged back there tomorrow. KENDALL DR: Hemant TID: [id number]
--- NOTE | 2021-05-17 14:57 | HP ---
DATE OF SERVICE: 05/17/2021 ADMIT DATE: 05/16/2021 HISTORY OF PRESENT ILLNESS: The patient is an 89-year-old female patient who was a resident at a [facility] and who was brought to the Emergency Room Department via EMS for reports of altered mental status with increased confusion over the past week. The transport marine surveyor reports he was told by the retirement staff the patient has been talking to people who were not there. Also reports the patient has been eloping from her facility and wandering, and the patient has had similar episodes in the past with urinary tract infection. The patient denied any complaints of headache, dizziness, chest pain, urinary burning, urinary pressure, increased urinary frequency. The patient denied physical complaints or physical concern. The patient does live at a local [facility] retirement. The transport marine surveyor indicated retirement staff is no longer able to care for the patient at their facility. She was extensively investigated in the Emergency Room and has had lab work and imaging studies. Her lab works are all unremarkable. Her urinalysis essentially unremarkable. Her coronavirus by PCR and rapid testing was negative. Her chest x-ray was unremarkable as well as CT scan of the head. She was evaluated by physical and occupational therapist and stated that she does not need any physical or occupational therapy. I attempted to admit her to our [facility]; however, they are full capacity and cannot be admitted there. In consulting with our social media designer, she stated that admitting her to a different facility is the responsibility of whoever takes care of that facility. PHYSICAL EXAMINATION: GENERAL: When I saw her, she looked well and was clearly in no apparent respiratory distress. No pallor, jaundice, cyanosis or thyromegaly. No jugular venous distention. No lower limb edema. VITAL SIGNS: Her heart rate was 66, blood pressure was 93/48, temperature was 97, respiratory rate 20, and oxygen saturation was 92%. HEAD, EYES, EARS, NOSE, AND THROAT: Normocephalic, atraumatic. NECK: Supple. HEART: Showed normal first and second heart sounds. No gallop, rub or murmur. CHEST: Clear to auscultation. No crepitation or rhonchi. ABDOMEN: Distended, soft, nontender. NEUROLOGIC: She was demented, but without any obvious lateralizing sign. She ambulates without assistance or assistive devices. LABORATORY DATA: Her lab work showed a white cell count of 4300, hemoglobin 11, hematocrit 33, MCV 89 and platelet count of 179,000. Her chemistry showed a serum sodium 136, potassium 4.7, chloride 102, bicarbonate 28, anion gap of 6, BUN 25, creatinine was 1.3. Estimated GFR was 38 mL per minute. Her glucose was 86. Calcium was 8.7. Total bilirubin, AST, ALT, alkaline phosphatase were normal. Her total protein was 6.9, albumin 3.6, lipase was 63. Urinalysis essentially unremarkable, and her coronavirus by PCR and rapid testing were negative. ASSESSMENT AND PLAN: Apparently when I questioned the nursing staff, they stated that she is very weak and she has to have 2-person assist to get to the bathroom and therefore, we will probably cancel the discharge and start her on IV fluids, repeat her lab work again this evening and hopefully if she is stable, she can be discharged back there tomorrow. KENDALL DR: Hemant TID: [id number]
[2021-05-17 15:44] LABS: CALCIUM 8.2 mg/dL (8.5-10.1); CREATININE 1.8 mg/dL (0.6-1.0); GFR 26.6; POTASSIUM 4.1 mmol/L (3.5-5.1)
--- NOTE | 2021-05-17 17:20 | NUR ---
Wound/Ostomy Care Wound Type/Assessment: Wound consult for RFA skin tear. Pt has large skin tear to RFA that is draining large amount of serous fluid. Pt FA and hand are edematous. Cleansed, measured, and redressed wound. Applied medigrip D over dressing Treatment Recommendations/Plan: Cleanse wound, apply collagen, contact layer and foam dressing. Apply medigrip D and elevate on pillow. Change 2x weekly. WC will change on Thursday Education provided: PU prevention and WC POC, pt verbalized understanding. Offloading surface/device: TQ2H, float heels. Recommended Referrals/Tests: na Discharge Recommendations for dressings: see above
[2021-05-17] MEDS: IV NORMAL SALINE 1,000ML 1,000 ML IV SCH (17:40)
[2021-05-18 00:38] VITALS: BP 117/60
[2021-05-18] MEDS: IV NORMAL SALINE 1,000ML 1,000 ML IV SCH ×3 (04:00→22:07)
[2021-05-18 05:57] VITALS: BP 124/57
[2021-05-18 07:57] LABS: HEMATOCRIT 29.6 % (36.0-47.0); HEMOGLOBIN 9.7 g/dL (12.0-15.5); RED BLOOD COUNT 3.26 x10^6/uL (3.50-5.40); RED CELL DISTRIBUTION WIDTH 15.2 % (11.5-14.5); WHITE BLOOD COUNT 5.9 x10^3/uL (4.0-11.0)
[2021-05-18 08:08] LABS: CALCIUM 7.8 mg/dL (8.5-10.1); CREATININE 1.2 mg/dL (0.6-1.0); GFR 42.4; POTASSIUM 4.4 mmol/L (3.5-5.1)
[2021-05-18 08:14] LABS: ALBUMIN 2.8 g/dL (3.4-5.0); TOTAL BILIRUBIN 0.3 mg/dL (0.2-1.0); TOTAL PROTEIN 5.5 g/dL (6.4-8.2)
[2021-05-18] MEDS: POLYETHYLENE GLYCOL 3350 17 GM PACKET. PO SCH (08:26)
[2021-05-18] MEDS: DULoxetine HCL 20 MG CAPSULE.DR PO SCH ×2 (08:26→22:00)
[2021-05-18] MEDS ORDERED: METOPROLOL SUCC 24HR ER 25 MG TAB.ER.24H. PO SCH (09:00)
[2021-05-18] MEDS ORDERED: LISINOPRIL 10 MG TABLET PO SCH (09:00)
--- NOTE | 2021-05-18 10:18 | NUR ---
THIS RN SPOKE WITH CAREGIVER SHANNA REGARDING PATIENT LANGUAGE BARRIER, SHANNA SAID THAT PATIENT KNOWS GERMAN AND IS ABLE TO SPEAK GERMAN, PATIENT NEED TO BE REMINDED ABOUT SPEAKING GERMAN TO THE STAFF.
[2021-05-18 10:36] VITALS: BP 106/55
[2021-05-18 14:47] VITALS: BP 128/54
--- NOTE | 2021-05-18 17:14 | NUR ---
PATIENT WOKE UP THIS LATE AFTERNOON, CONFUSED AND DISORGANIZED, PULLED HER IV OUT, KEEP TRYING TO GET OUT OF BED, PATIENT CONTINUES TO SPEAK SINGAPOREAN, PATIENT WAS INSTRUCTED A FEW TIMES TO SPEAK INDIAN. PATIENT WAS ASSISTED TO THE BATHROOM. PATIENT CONTINUE TO BE CONFUSED AND ANXIOUS TO LEAVE THE ROOM. ZYPREXA PO PRN GIVEN ORDERED.
--- NOTE | 2021-05-18 17:51 | PN ---
DATE: 05/18/2021 SUBJECTIVE: The patient is resting, slightly propped up in bed, in no apparent respiratory distress. She is more awake, alert. Although she is able to speak Georgian, she sometimes mixes her answers in Guyanese, which makes evaluation difficult. According to the [facility] that she lived in, she is able to walk and she is on elopement risk. Their main concern that she is not eating enough and will require considering a gastrostomy tube placement. She does not eat and drink. She was markedly dehydrated and hypotensive yesterday, so we did start her on IV fluid. She is actually feeling much better today. Her blood pressure is slightly up today. She was able to eat about 50% of her meals this afternoon. PHYSICAL EXAMINATION: GENERAL: When I examined her, she looked pale, very cachectic with a body mass index of only 14.7 kilograms/square meter. There is no jaundice or cyanosis. No lymphadenopathy, no thyromegaly, no jugular venous distention. No lower limb edema. VITAL SIGNS: Her heart rate was 64, blood pressure was 106/55, temperature was 97.9, respiratory rate 20, and oxygen saturation was 96% on room air. HEAD, EYES, EARS, NOSE, AND THROAT: Normocephalic, atraumatic. NECK: Supple. HEART: Normal first and second heart sounds. No gallop, rub or murmur. CHEST: Clear to auscultation, no crepitation or rhonchi. ABDOMEN: Scaphoid, soft, nontender. NEUROLOGIC: She is definitely more awake, alert, responding appropriately, although sometimes she speaks in Guyanese intermixed, communication is slightly difficult. All her cranial nerves are intact. She moves extremities without difficulty. She required 2-person assist yesterday to get her to the bathroom. Her intake and output are incompletely recorded. LABORATORY DATA: This morning showed her white cell count was 5900, hemoglobin 9.7, hematocrit 29.6, MCV 91, and platelet count of 171,000. Her chemistry this morning showed a serum sodium 143, potassium 4.4, chloride 110, bicarbonate 24, anion gap of 9, BUN 37, creatinine is down to 1.2. Estimated GFR was 42 mL per minute. Her glucose was 93, calcium was 7.8. Total bilirubin, AST, ALT, alkaline phosphatase were normal. Total protein 5.5, albumin was 2.8. Urinalysis essentially unremarkable. Her coronavirus by PCR was negative. ASSESSMENT: 1. Marked generalized weakness. 2. Hypotension, improving. 3. Acute kidney injury, resolving. Her creatinine came down from 1.8 to 1.2. 4. Severe cachexia with a body mass index only 14.7 kilograms/square meter. PLAN: My plan is to continue with IV fluid as her blood pressure continues to be on the lower side, I will discontinue her lisinopril completely and cut down metoprolol 12.5 mg. I have consulted the physical and occupational therapist. ISAURO DR: Hemant TID: [id number]
--- NOTE | 2021-05-18 19:58 | NUR ---
Nursing note: Per Laura, caregiver, Fr. Stanley stated pt is a DNR. Will work on obtaining paperwork for DNR.
[2021-05-18 20:13] VITALS: BP 114/66
[2021-05-19 00:41] VITALS: BP 174/69
--- NOTE | 2021-05-19 01:40 | NUR ---
Nursing note: Pt restless and unable to orient at beginning of shift, attempting to climb out of bed unassisted; per day shift, had removed 2-3 IVs and zydis had minimal effect. Spoke to Dr. Amanda about alternatives, 0.5mg ativan q4hIV ordered and administered. Pt rested after admin.
[2021-05-19 05:00] VITALS: BP 187/69
[2021-05-19] MEDS: IV NORMAL SALINE 1,000ML 1,000 ML IV SCH ×2 (08:49→18:04)
[2021-05-19] MEDS: DULoxetine HCL 20 MG CAPSULE.DR PO SCH ×2 (09:00→19:29)
[2021-05-19] MEDS ORDERED: METOPROLOL SUCC 24HR ER 25 MG TAB.ER.24H. PO SCH (09:00)
[2021-05-19] MEDS: POLYETHYLENE GLYCOL 3350 17 GM PACKET. PO SCH (09:00)
[2021-05-19 11:25] VITALS: BP 101/61
[2021-05-19] MEDS ORDERED: LISINOPRIL 10 MG TABLET PO ONE (11:45)
[2021-05-19 12:29] LABS: CALCIUM 7.4 mg/dL (8.5-10.1); CREATININE 0.9 mg/dL (0.6-1.0); GFR 59.1; POTASSIUM 3.7 mmol/L (3.5-5.1)
[2021-05-19 15:03] VITALS: BP 157/57
--- NOTE | 2021-05-19 17:49 | PN ---
SUBJECTIVE: The patient is resting, slightly propped up in bed, sleeping comfortably, in no apparent distress. She apparently requires 2-person assist to go to the bathroom and she is impulsive, but she is very unsteady on her feet. She would not eat herself, but she has eaten 100% of her breakfast this morning, when she was ____ with FOOD CHEMIST. PHYSICAL EXAMINATION: GENERAL: When I examined her this morning, she looked pale, cachectic, but not jaundiced, cyanosed. No lymphadenopathy, no thyromegaly, no jugular venous distention. No limb edema. VITAL SIGNS: Her heart rate was 67, blood pressure was 187/69, temperature was 97.3, respiratory rate was 18 and oxygen saturation was 93%. HEAD, EYES, EARS, NOSE, AND THROAT: Normocephalic, atraumatic. NECK: Supple. HEART: Normal first and second heart sounds. No gallop or murmur. CHEST: Clear to auscultation. No crepitation or rhonchi. ABDOMEN: Distended, soft, nontender. NEUROLOGIC: She was sleepy, but arousable. Cranial nerves intact. She moves extremities without difficulty, although she is very unsteady on her feet. She is a very high fall risk. Her intake was 1700. No output was recorded. LABORATORY DATA: As of yesterday showed a serum sodium 143, potassium 4.4, chloride 110, bicarbonate 24, anion gap of 9, BUN 37, creatinine 1.2. Estimated GFR was 42 mL per minute. Her glucose was 93, calcium was 7.8. Total bilirubin, AST, ALT, alkaline phosphatase were normal. Total protein 5.5, albumin 2.8. ASSESSMENT: 1. Generalized weakness and unsteady on her feet. 2. Hypotension has improved. In fact, she is hypertensive. 3. Acute kidney injury, resolving. Her creatinine came down from 1.8 to 1.2. 4. Severe cachexia with a body mass index 14.7 kilograms/square meter. PLAN: To repeat her labs today and if her electrolytes and kidney function are normal, we will discontinue IV fluid. I will restart her lisinopril 10 mg once a day and [facility] I will attempt to transfer her to [facility] for gastrostomy tube placement if a bed is available. AMM/DANIEL/SAGAR DR: Hemant TID: [id number]
[2021-05-19 20:00] VITALS: BP 177/74
[2021-05-20] MEDS: IV NORMAL SALINE 1,000ML 1,000 ML IV SCH (03:50)
[2021-05-20 05:40] VITALS: BP 190/68
[2021-05-20 07:07] LABS: ALBUMIN 2.6 g/dL (3.4-5.0); ALBUMIN/GLOBULIN RATIO 0.8 (1.0-1.7); CALCIUM 7.9 mg/dL (8.5-10.1); CREATININE 0.8 mg/dL (0.6-1.0); GFR 67.7; POTASSIUM 3.8 mmol/L (3.5-5.1); TOTAL BILIRUBIN 0.2 mg/dL (0.2-1.0); TOTAL PROTEIN 5.7 g/dL (6.4-8.2)
[2021-05-20] MEDS: DULoxetine HCL 20 MG CAPSULE.DR PO SCH ×2 (09:00→20:52)
[2021-05-20] MEDS: POLYETHYLENE GLYCOL 3350 17 GM PACKET. PO SCH (09:00)
[2021-05-20] MEDS ORDERED: LISINOPRIL 10 MG TABLET PO SCH (09:00)
[2021-05-20] MEDS: METOPROLOL TART IMMED RELEASE 25 MG TABLET. PO SCH (09:00)
--- NOTE | 2021-05-20 10:30 | NUR ---
PT IS RESTING IN BED THIS AM. PT HAS BEEN SLEEPING ALL MORNING. PT IS COOPERATIVE WITH MEDICATIONS CRUSHED IN PUDDING. PT IS COOPRATIVE WITH PT BUT DOES TAKE SOME ENCOURAGEMENT TO GET UP. PT WAS COOPERATIVE WITH BED BATH IN BATHROOM THIS MORNING. PT IS CURRENTLY RESTING IN RECLINER AT THIS TME. WILL CONTINUE TO MONITOR.
[2021-05-20 10:45] VITALS: BP 182/66
[2021-05-20] MEDS ORDERED: LISINOPRIL 10 MG TABLET PO ONE (13:15)
[2021-05-20 15:58] VITALS: BP 164/76
[2021-05-20 19:00] VITALS: BP 182/72
[2021-05-20 19:46] LABS: BASO % 0 % (0-3); EOS % 0 % (0-3); HEMATOCRIT 33.9 % (36.0-47.0); HEMOGLOBIN 11.2 g/dL (12.0-15.5); LYMPH # 0.5 x10^3/uL (1.0-4.8); LYMPH % 6 % (24-48); MEAN CORPUSCULAR HEMOGLOBIN 30 pg (25-35); MEAN CORPUSCULAR HGB CONC 33 g/dL (31-37); MEAN CORPUSCULAR VOLUME 90 fL (79-100); MONO # 0.6 x10^3/uL (0.0-1.1); MONO % 7 % (0-9); NEUT # 7.3 x10^3uL (1.8-7.7); NEUT % 86 % (31-73); PLATELET COUNT 188 x10^3/uL (140-400); RED BLOOD COUNT 3.78 x10^6/uL (3.50-5.40); RED CELL DISTRIBUTION WIDTH 15.4 % (11.5-14.5); WHITE BLOOD COUNT 8.5 x10^3/uL (4.0-11.0)
[2021-05-20 19:59] LABS: ALBUMIN 2.8 g/dL (3.4-5.0); ALBUMIN/GLOBULIN RATIO 0.8 (1.0-1.7); CALCIUM 8.2 mg/dL (8.5-10.1); CREATININE 0.9 mg/dL (0.6-1.0); GFR 59.1; POTASSIUM 3.9 mmol/L (3.5-5.1); TOTAL BILIRUBIN 0.3 mg/dL (0.2-1.0); TOTAL PROTEIN 6.2 g/dL (6.4-8.2)
--- NOTE | 2021-05-20 21:51 | PN ---
DATE: 05/20/2021 SUBJECTIVE: The patient is sitting comfortably in her chair in no apparent distress. The nursing staff did not voice any concerns, stated that she has generally uneventful night, although yesterday afternoon, she was extremely agitated and restless, attempts to get out of the bed. PHYSICAL EXAMINATION: GENERAL: When I examined her this morning, she looked pale, extremely cachectic, but not jaundiced, cyanosed, no lymphadenopathy, no thyromegaly, no jugular venous distention. No lower limb edema. VITAL SIGNS: Her heart rate was 79, blood pressure was 182/66, temperature was 98.6, respiratory rate was 18, and oxygen saturation was 92% on room air. HEAD, EYES, EARS, NOSE AND THROAT: Normocephalic, atraumatic. NECK: Supple. HEART: Showed normal first and second heart sounds. No gallop, rub, or murmur. CHEST: Clear to auscultation, no crepitation or rhonchi. ABDOMEN: Distended, soft, nontender. NEUROLOGIC: She is demented without any obvious lateralizing sign. She is mostly bedbound, chair bound. She requires 2-person assist. LABORATORY DATA: This morning showed a white cell count of 5900, hemoglobin 10, hematocrit 30, MCV 91, and platelet count of 171,000. Her chemistry showed a serum sodium 145, potassium 3.8, chloride 112, bicarbonate 25, anion gap of 8, BUN 22, creatinine was 0.8. Estimated GFR was 68 mL per minute. Her glucose was 98, calcium was 7.9. Total bilirubin, AST, ALT, alkaline phosphatase were normal. Total protein of 5.7, albumin was 2.6. ASSESSMENT: 1. Generalized weakness and unsteadiness on her feet. 2. Hypotension, has improved. In fact, she is hypertensive. 3. Acute kidney injury, resolving. Her serum creatinine is down to 1.2. 4. Severe cachexia with a body mass index only 14.7 kilograms/square meter. 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 This decision has not been finalized and therefore, the patient will continue here on IV fluid and I will increase her lisinopril to 20 mg twice a day as she was on it before. MENDEZ/JUAN PABLO DR: Hemant TID: [id number]
[2021-05-20 23:59] VITALS: BP 178/67
[2021-05-21 05:20] VITALS: BP 122/71
[2021-05-21] MEDS ORDERED: ACETAMINOPHEN 650 MG SUPP.RECT. PR PRN (08:45)
[2021-05-21] MEDS: LISINOPRIL 20 MG TABLET PO SCH (09:00)
[2021-05-21] MEDS: METOPROLOL TART IMMED RELEASE 25 MG TABLET. PO SCH (09:00)
[2021-05-21] MEDS: DULoxetine HCL 20 MG CAPSULE.DR PO SCH ×2 (09:00→19:46)
[2021-05-21] MEDS: POLYETHYLENE GLYCOL 3350 17 GM PACKET. PO SCH (09:00)
--- NOTE | 2021-05-21 09:00 | NUR ---
PT IS LETHARG THIS AM AND ONLY RESPONSIVE TO PAINUFL SIMULI. PT IS NOTED TO HAVE A FEVER OF 101.[address] BAUER NOTIFIED AND ORDERS RECIEVED FOR UA WITH CULTURE, BLOOD CULTURES. PT IS HEMODYNAMICALLY STABLE, BUT SLEEPING AND ONLY RESPONDING TO PAIN WITH GRUNTS AND MOUTH MOVEMENTS AT THIS TIME. AMANDA CATH PLACED THIS AM WHILE OBTAINGING URINE SAMPLE. WILL CONTINUE TO MONITOR.
[2021-05-21 09:36] LABS: BACTERIA,URINE 0 /HPF (0-FEW); BILIRUBIN,URINE NEG (NEG); CLARITY,URINE HAZY; COLOR,URINE YELLOW; GLUCOSE,URINE NEG (NEG); NITRITE,URINE NEG (NEG); UROBILINOGEN,URINE 0.2 mg/dL (0.2 mg/dL)
[2021-05-21 09:37] LABS: SQUAMOUS EPITHELIAL CELL,UR FEW /LPF
[2021-05-21 10:34] VITALS: BP 104/55
--- NOTE | 2021-05-21 10:38 | RAD ---
XR CHEST 1V INDICATION: SHORTNESS OF BREATH COMPARISON STUDY: 05/16/2021. FINDINGS: Lungs: Low lung volume. No focal airspace disease. Normal pulmonary vasculature. Pleura: No pleural effusion or pneumothorax. Heart and Mediastinum: Stable cardiomediastinal silhouette and great vessels. IMPRESSION: Low lung volume. No consolidation. Electronically signed by: Errol De León MD (05/21/2021 10:36 AM) [id number]
[2021-05-21] MEDS: POTASSIUM CL 20MEQ D5-0.45NACL 1,000 ML IV SCH (13:30)
[2021-05-21 13:41] LABS: ALBUMIN 2.9 g/dL (3.4-5.0); CALCIUM 8.2 mg/dL (8.5-10.1); CREATININE 1.1 mg/dL (0.6-1.0); GFR 46.9; POTASSIUM 3.7 mmol/L (3.5-5.1); TOTAL BILIRUBIN 0.7 mg/dL (0.2-1.0); TOTAL PROTEIN 5.9 g/dL (6.4-8.2)
[2021-05-21 13:43] LABS: HEMATOCRIT 34.4 % (36.0-47.0); HEMOGLOBIN 11.4 g/dL (12.0-15.5); RED BLOOD COUNT 3.89 x10^6/uL (3.50-5.40); RED CELL DISTRIBUTION WIDTH 14.5 % (11.5-14.5); WHITE BLOOD COUNT 8.5 x10^3/uL (4.0-11.0)
[2021-05-21 14:36] VITALS: BP 93/51
--- NOTE | 2021-05-21 14:45 | RAD ---
CT HEAD INDICATION: Reason: ALTERED MENTAL STATUS / Spl. Instructions: / History: COMPARISON: 05/16/2021 Exposure: One or more of the following individualized dose reduction techniques were utilized for thi s examination: 1. Automated exposure control 2. Adjustment of the mA and/or kV according to patient size 3. Use of iterative reconstruction technique TECHNIQUE: 5 mm contiguous axial images were obtained from the skull base to the vertex in both bone and soft tissue algorithm. FINDINGS: Moderate bilateral periventricular white matter hypodensities likely chronic small vessel ischemic di sease. Small parenchymal calcification identified in the right parietal lobe posteriorly similar to p rior exam No evidence of acute intracranial hemorrhage. No extra-axial fluid collections. No mass effect or midline shift. Ventricular size is appropriate. Basal cisterns are patent. No fractures identified.Emdond-white differentiation is preserved.Globes and orbits are within normal l imits. Paranasal sinuses and mastoid air cells are clear. IMPRESSION: 1. No acute intracranial findings. Recommend MRI for further evaluation if symptoms persist. 2. Moderate bilateral periventricular white matter hypodensities likely chronic small vessel ischemi c disease. Electronically signed by: Hugo Blanchard MD (05/21/2021 2:43 PM) [id number]
--- NOTE | 2021-05-21 17:31 | NUR ---
PT IS SLIGHTLY MORE ALERT THIS AM BUT REFUSED ALL MEALS TODAY. PT DID HAVE HALF OF AN ENSURE A SUPPLMENT.
[2021-05-21 18:08] VITALS: BP 101/57
--- NOTE | 2021-05-22 00:45 | NUR ---
Pt awake and restless this evening. Pt is confused attempting to get up from bed (sounding alarm). Unable to reorient to hospital or situation. Pt repositioned in bed with multiple pillows for maximal comfort. PRN zydis given as indicated, moderately effective.
[2021-05-22] MEDS: POTASSIUM CL 20MEQ D5-0.45NACL 1,000 ML IV SCH (02:50)
--- NOTE | 2021-05-22 03:35 | PN ---
SUBJECTIVE: The patient is resting flat in bed comfortably, in no apparent distress. She is unresponsive to verbal stimuli. She does withdraw to painful stimuli. PHYSICAL EXAMINATION: GENERAL: When I examined her, she was pale, extremely cachectic, but not jaundiced or cyanosed. No lymphadenopathy, no thyromegaly, no jugular venous distention. No lower limb edema. VITAL SIGNS: Her heart rate was 68, blood pressure is 104/55, temperature was 98.8, respiratory rate was 18 and oxygen saturation was 95% on room air. HEAD, EYES, EARS, NOSE AND THROAT: Normocephalic, atraumatic. NECK: Supple. HEART: Normal first and second heart sounds. No gallop or murmur. CHEST: Clear to auscultation. No crepitation or rhonchi. ABDOMEN: Scaphoid, soft, nontender. NEUROLOGIC: She is unresponsive; however, she grimace and withdraw to painful stimuli. Her intake over the last 24 hours was 3980, no output was recorded. LABORATORY DATA: As of yesterday, her white cell count was 8500, hemoglobin 11, hematocrit 33, MCV 90 and platelet count of 188,000. Her chemistry showed a serum sodium 142, potassium 3.9, chloride 107, bicarbonate 26, anion gap of 9, BUN 30, creatinine 0.9. Estimated GFR was 59 mL/min. Her glucose was 111, calcium was 8.2. Total bilirubin, AST, ALT, alkaline phosphatase were normal. Total protein 6.2, albumin was 2.8. Her urinalysis was essentially unremarkable. The urine was negative for leukocyte esterase. There were 6-10 rbc's, 1-4 wbc's and no bacteria. We did a chest x-ray, which also showed the low lung volumes. No consolidation. Stable cardiomediastinal silhouette and great vessels. ASSESSMENT: In summary, this is an 89-year-old female patient, now with altered mental status, the cause of which is not clear. There is no metabolic reason for it and she did spike a temperature up to 100.8. We did send blood for culture and sensitivity. However, there is no site of infection that we could treat. She was originally admitted with generalized weakness, unsteadiness on her feet. Hypertension that has improved. Acute kidney injury, resolved. Severe cachexia with a body mass index only 14.7 kg/m2. PLAN: My plan is to arrange for a CT scan of the head without contrast to rule out any possibility of intraparenchymal hemorrhage. She is a DNR and the plan was for her to go on hospice. MENDEZ/BLAKE/JESSIE DR: Hemant TID: [id number]
[2021-05-22 05:46] VITALS: BP 126/55
--- NOTE | 2021-05-22 07:48 | NUR ---
PT IS SLEEPING IN BED. AROUSABLE TO SPEAKING AND TOUCH BUT WENT BACK TO SLEEP DURING ASSESSMENT.
[2021-05-22] MEDS: METOPROLOL TART IMMED RELEASE 25 MG TABLET. PO SCH (08:38)
[2021-05-22] MEDS: LISINOPRIL 20 MG TABLET PO SCH (08:38)
[2021-05-22] MEDS: DULoxetine HCL 20 MG CAPSULE.DR PO SCH (08:38)
[2021-05-22] MEDS: POLYETHYLENE GLYCOL 3350 17 GM PACKET. PO SCH (08:38)
--- NOTE | 2021-05-22 09:00 | NUR ---
NURSING NOTE PT LETHARGIC IN THE BED THIS AM, RESISTIVE TO HER MEDICATIONS AND WOULD NOT ALLOW ADMINISTRATION FROM [facility]. THIS RN SPOKE WITH DR CHAVIRA IN REGARD TO PT, PER DR CHAVIRA, DISCONTINUE ORAL MEDICATIONS AND IV FLUIDS AT THIS TIME. PLAN IS FOR [facility] TO VISIT AND EVALUATE PT THIS MORNING FOR HOSPICE PLACEMENT AT THAT FACILITY. CASE MANAGEMENT INVOLVED. RAVI GUADARRAMA.
[2021-05-22 10:51] VITALS: BP 136/49
--- NOTE | 2021-05-22 12:59 | DS ---
DATE OF DISCHARGE: 05/22/2021 ATTENDING PHYSICIANS: Dr. Amanda and Dr. Grey. FINAL DISCHARGE DIAGNOSES: 1. Altered mentation. 2. Underlying dementia. 3. Profound dementia. 4. Protein-calorie malnutrition. 5. Anemia of chronic disease. 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 She was brought in with altered mentation. She is a DNR per advanced directive. She could not give much history. PHYSICAL EXAMINATION: Please see the dictated note. PERTINENT LABORATORY AND X-RAY STUDIES: Imaging studies on admission included CT of the head, which showed no evidence of acute stroke or bleed. There is extensive small vessel disease. Repeat CT of the head on the 05/21/2021 was unchanged, small vessel ischemic disease identified. Her admission hemoglobin was 11.1 g/dL, white count of 4300. Electrolytes within normal range. Creatinine is 1.1 mg/dL. Electrolytes were normal. Cardiac enzymes were unremarkable. Total protein is diminished at 5.9. Cultures showed no growth after 5 days. COURSE IN HOSPITAL: The patient was admitted. She was started on empiric antibiotics. Home meds were continued. She remained a DNR per advanced directives. Arrangements were then made for the patient given her prognosis to go to a local snf with hospice care. Her end-of-life care is expected. Her prognosis is terminal. She will be on p.r.n. meds. All of her home scheduled meds were discontinued. The patient was then sent to the local nursing facility with hospice care for end-of-life care. Her prognosis again is terminal. Total discharge time is 39 minutes. MARITA STANTON: Cathi TID: [id number] CC: USMAN SANTAMARIA MD
--- NOTE | 2021-05-22 13:14 | NUR ---
DISCHARGE NOTE PT [facility]. PT BELONGINGS SENT WITH PT. REPORT CALLED TO [facility]. CAREGIVER RONDA NOTIFIED OF DISCHARGE PLAN.
== END 2021-05-22 13:10 | disposition hospice, inpatient (51) | DRG 682 ==
LOC: ER 10:55 → 1 SOUTH 15:20 → UNDODISIN 05-22 13:15
PROVIDERS: ADMIT Internal Medicine; ATTEND Internal Medicine
DX: N17.9 Acute kidney failure, unspecified (principal); E43 Unspecified severe protein-calorie malnutrition; R64 Cachexia; Z68.1 Body mass index [BMI] 19.9 or less, adult; D63.8 Anemia in other chronic diseases classified elsewhere; E86.0 Dehydration; F03.90 Unspecified dementia, unspecified severity, without behavioral disturbance, psychotic disturbance, mood disturbance, and anxiety; I10 Essential (primary) hypertension; Z66 Do not resuscitate; Z20.822 Contact with and (suspected) exposure to COVID-19; Z51.5 Encounter for palliative care
CPT/HCPCS: 36415; 70450; 71045; 80048; 80053; 81001; 83605; 83690; 85025; 85027; 87040; 87426; 93005; J2060; J7040; U0003; 97530; 97535; 99285-25; J7030